=== PATIENT | male | born 1980 | race Caucasian/White ===

== ENCOUNTER 2019-07-13 08:08 | Emergency (ER) | payer BC ==
[2019-07-13] MEDS ORDERED: NS 0.9% 1000 ML** 2,000 ML IV ONE (08:21)
[2019-07-13] MEDS ORDERED: Ketorolac INJ* 30 MG/ML 1 ML VIAL IV ONE (08:21)
--- NOTE | 2019-07-13 08:31 | ED ---
Abdominal Pain/Male - HPI Summary HPI Summary: This patient is a 39-year-old otherwise healthy male who presents to the ED with right-sided flank pain. He has a history of kidney stones on the left side. He states this was acute onset this morning with severe 7/10 right-sided flank pain which is nonradiating. He denies any urinary symptoms including versus hematuria or obstructive symptoms. He denies any fevers, sweats, chills. He describes the pain as a dull ache, constant and somewhat throbbing. He denies any CP or SOB. He does have a history of high blood pressure and hypercholesterolemia as well as takes vitamin D daily. Denies any nausea, vomiting. Vital signs are stable on arrival. - History of Current Complaint Chief Complaint: EDFlankPain Stated Complaint: FLANK PAIN Time Seen by Provider: 07/13/19 08:13 Hx Obtained From: Patient Onset/Duration: Sudden Onset Timing: Constant Severity Initially: Severe Severity Currently: Severe Pain Intensity: 8 Pain Scale Used: 0-10 Numeric Location: Flank Radiates: No Character: Cramping Aggravating Factor(s): Nothing Alleviating Factor(s): Nothing Associated Signs And Symptoms: Positive: Negative. Negative: Blood in Stool, Urinary Symptoms, Decreased Appetite, Vomiting, Diarrhea, Penile Discharge - Risk Factors Testicular Torsion: Negative Cardiac Risk Factors: Negative - Allergies/Home Medications Allergies/Adverse Reactions: Allergies Allergy/AdvReac Type Severity Reaction Status Date / Time No Known Allergies Allergy Verified 07/13/19 08:12 PMH/Surg Hx/FS Hx/Imm Hx Previously Healthy: Yes Cardiovascular History: Reports: Hx Hypertension - CONTROL WITH MED, Other Cardiovascular Problems/Disorders - CHOLESTEROL CONTROL WITH MEDS Respiratory History: Reports: Hx Asthma - EXERCISE INDUCED Denies: Other Respiratory Problems/Disorders GI History: Denies: Other GI Disorders History: Reports: Hx Kidney Stones - ESWL ON LEFT, 2011,, 2014 has presently Sensory History: Denies: Hx Contacts or Glasses, Hx Hearing Aid Opthamlomology History: Denies: Hx Contacts or Glasses - Surgical History Surgery Procedure, Year, and Place: PRK LASIK SURGERY-2006. 2011 ESWL ON LEFT, , 2014 Hx Anesthesia Reactions: No - Immunization History Hx Pertussis Vaccination: No Immunizations Up to Date: Yes Infectious Disease History: No Infectious Disease History: Denies: Traveled Outside the [place] in Last 30 Days - Social History Occupation: Employed Full-time Lives: With Family Alcohol Use: None Alcohol Amount: 2-3 per year Hx Substance Use: No Substance Use Type: Reports: None Hx Tobacco Use: Yes Smoking Status (MU): Former Smoker Amount Used/How Often: 1-2 cigs per day Review of Systems Constitutional: Negative Negative: Fever, Chills, Fatigue, Skin Diaphoresis Negative: Palpitations, Chest Pain Negative: Shortness Of Breath, Cough Negative: Abdominal Pain, Vomiting, Diarrhea, Nausea Genitourinary: Negative Positive: no symptoms reported, see HPI, flank pain Skin: Negative All Other Systems Reviewed And Are Negative: Yes Physical Exam Triage Information Reviewed: Yes Vital Signs On Initial Exam: Initial Vitals Temp Pulse Resp BP Pulse Ox 98.5 F 91 16 165/98 96 07/13/19 08:09 07/13/19 08:09 07/13/19 08:09 07/13/19 08:09 07/13/19 08:09 Vital Signs Reviewed: Yes Appearance: Positive: Well-Appearing, Well-Nourished Skin: Positive: Warm, Skin Color Reflects Adequate Perfusion Head/Face: Positive: Normal Head/Face Inspection Eyes: Positive: EOMI, MATT, Conjunctiva Clear Neck: Positive: Supple, No Lymphadenopathy Respiratory/Lung Sounds: Positive: Clear to Auscultation, Breath Sounds Present Cardiovascular: Positive: RRR, Pulses are Symmetrical in both Upper and Lower Extremities Abdomen Description: Positive: Nontender, No Organomegaly, Soft, CVA Tenderness (R). Negative: CVA Tenderness (L), Distended, Guarding, Hepatomegaly, Splenomegaly Musculoskeletal: Positive: Normal, Strength/ROM Intact Neurological: Positive: Alert, Oriented to Person Place, Time, Speech Normal Psychiatric: Positive: Affect/Mood Appropriate AVPU Assessment: Alert Diagnostics - Vital Signs Vital Signs Temp Pulse Resp BP Pulse Ox 07/13/19 08:09 98.5 F 91 16 165/98 96 - Laboratory Result Diagrams: 07/13/19 08:51 07/13/19 08:51 Lab Statement: Any lab studies that have been ordered have been reviewed, and results considered in the medical decision making process. Abdominal Pain Male Course/Dx - Course Course Of Treatment: During his course of treatment, the patient is evaluated for right-sided flank pain which is nonradiating. He is endorsing this pain as a 7/10, dull ache. He has not tried any medications [id number] for relief. Symptoms were acute onset this morning. Denies any urinary symptoms, including obstructive symptoms or gross hematuria. He does not feel like he pulled a muscle and denies any heavy lifting. He denies any testicular pain or right lower quadrant pain. Denies fevers, sweats, chills. Vital signs are stable on arrival: afebrile at 98.5, HR 81, respirations 16. 96% on room air and 165/98. Labs obtained and a CT abdomen/pelvis obtained. He is given 2L fluids and toradol while in the ED. CT abd/pelvis obtained: Mild right hydronephrosis is trace to 8.4 cm distal right ureteral stone approximately 1.5 cm from UVJ. Additional right side urolithiasis with 0.7 cm inferior pole stone. He was give 8mg total morphine d/t ongoing pain. On re-examination, patient feels improved. No evidence of UTI. Possibly passed stone, but unsure. States he is OK for DC and will f/u with Dr. Rodriguez. - Diagnoses Differential Diagnosis/HQI/PQRI: Renal Colic, Ureteral Stone, Urinary Tract Infection Provider Diagnoses: Ureteral stone Discharge ED - Sign-Out/Discharge Documenting (check all that apply): Patient Departure Patient Received Moderate/Deep Sedation with Procedure: No - Discharge Plan Condition: Stable Disposition: HOME Prescriptions: Hydrocodone/Acetamin 10/325(NF [Gravel Switch 10/325 (NF)] 1 tab PO Q6H #12 tab MDD 4 Patient Education Materials: Kidney Stones (ED), Renal Colic (ED) Referrals: Ethel Young [Primary Care Provider] - Additional Instructions: Please follow up with Dr. Rodriguez Return for any worsening symptoms Hydrocodone 10mg up to every 6 hours as needed for pain - Billing Disposition and Condition Condition: STABLE Disposition: Home
[2019-07-13] MEDS ORDERED: Morphine 4 MG/ML VIAL (1 ml) 4 MG/ML VIAL IV ONE ×2 (09:03→09:35)
[2019-07-13 09:08] LABS: ABS Basophils 0.1 10^3/ul (0-0.2); ABS Eosinophils 0.6 10^3/ul (0-0.6); ABS Monocytes 0.7 10^3/ul (0-0.8); ABS Neutrophils 5.2 10^3/ul (1.5-7.7); Eosinophil % 6.6 %; Hematocrit 48 % (42-52); Hemoglobin 16.7 g/dL (14.0-18.0); Mean Corpuscular HGB Conc 35 g/dL (31-36); Mean Corpuscular Hemoglobin 30 pg (27-31); Mean Corpuscular Volume 86 fL (80-94); Mean Platelet Volume 9.1 fL (7.4-10.4); Nucleated Red Blood Cells % 0.1; Platelet Count 218 10^3/uL (150-450); Red Blood Count 5.63 10^6 /uL (4.18-5.48); Red Cell Distribution Width 14 % (10-15); White Blood Count 9.6 10^3/uL (3.5-10.8)
[2019-07-13 09:25] LABS: Albumin 4.3 g/dL (3.2-5.2); Albumin/Globulin Ratio 1.5 (1-3); BUN/Creatinine Ratio 15.5 (8-20); C Reactive Protein 3.09 mg/L (<8.01); Calcium 9.2 mg/dL (8.6-10.3); EGFR African American 123.1 (>60); EGFR Non-African American 101.7 (>60); Globulin 2.9 g/dL (2-4); Magnesium 1.9 mg/dL (1.9-2.7); Potassium 4.1 mmol/L (3.5-5.0); Total Bilirubin 0.3 mg/dL (0.2-1.0); Total Protein 7.2 g/dL (6.4-8.9)
[2019-07-13 10:50] LABS: Urine Appearance Cloudy; Urine Bacteria Absent (Absent); Urine Bilirubin Negative (Negative); Urine Blood 3+ (Negative); Urine Color Yellow; Urine Glucose Negative (Negative); Urine Ketones Negative (Negative); Urine Nitrite Negative (Negative); Urine Protein Negative (Negative); Urine Red Blood Cell 3+(>10/hpf) (Absent); Urine Specific Gravity 1.023 (1.010-1.030); Urine Squamous Epithelial Cell Present (Absent); Urine Urobilinogen Negative (Negative); Urine White Blood Cell Trace(0-5/hpf) (Absent)
[2019-07-13 11:38] VITALS: BP 161/95
== END 2019-07-13 11:43 | disposition home or self-care (01) ==
LOC: ED 08:08
DX: N13.2 Hydronephrosis with renal and ureteral calculous obstruction (principal); I10 Essential (primary) hypertension; J45.909 Unspecified asthma, uncomplicated; Z87.891 Personal history of nicotine dependence; Z79.899 Other long term (current) drug therapy
CPT/HCPCS: 36415; 74176; 80053; 81003; 81015; 83605; 83690; 83735; 85025; 86140; 87086; 96361; 96374; 96375; 96376; 99284; J1885; J2270